=== PATIENT | male | born 1985 ===

== ENCOUNTER 2021-11-02 14:31 | Emergency (ER) | payer SELFPAY ==
[2021-11-02] MEDS ORDERED: Lidocaine 1% 30 ML SDV INFILT ONE (15:06)
[2021-11-02] MEDS ORDERED: Bacitracin Oint 1 GM U/D Packet TOP ONE (16:36)
== END 2021-11-02 16:53 | disposition home or self-care (01) ==
LOC: DL.ED 14:31
DX: S61.212A Laceration without foreign body of right middle finger without damage to nail, initial encounter (principal); S61.214A Laceration without foreign body of right ring finger without damage to nail, initial encounter; W26.8XXA Contact with other sharp object(s), not elsewhere classified, initial encounter
CPT/HCPCS: 12001; 99282-25